=== PATIENT | male | born 1960 | race Caucasian/White ===

== ENCOUNTER 2017-11-30 11:21 | Emergency (ER) | payer OTHER ==
[~2017-11-30] VITALS: Ht 172.7 cm; Wt 79.4 kg
--- NOTE | 2017-11-30 11:41 | NUR ---
PATIENT WAS SEEN BY DR HENRIQUE LEE C/O COUGHING. DC, RX AND FOLLOW UP INSTRUCTIONS GIVEN AND EXPLAINED TO PATIENT AND FAMILY WHO STATE THEY UNDERSTAND ALL INSTRUCTIONS.
== END 2017-11-30 11:43 | disposition home or self-care (01) ==
LOC: ER 11:21
DX: J20.8 Acute bronchitis due to other specified organisms (principal); B96.89 Other specified bacterial agents as the cause of diseases classified elsewhere; I10 Essential (primary) hypertension
CPT/HCPCS: A4663